=== PATIENT | female | born 1995 | race African-American/Black ===

== ENCOUNTER 2017-08-14 18:40 | Emergency (ER) | payer OTHER ==
[~2017-08-14] VITALS: Ht 165.1 cm; Wt 122.7 kg
[~2017-08-14 18:40] MED LIST: BACTRIM DS 8001 TAB PO; BIRTH CONTROL PILLS; GLUCOPHAGE500 MG/TAB PO; NAPROSYN500 MG PO; NORCO 325 MG-51 TAB PO; PYRIDIUM 100MG100 MG PO; ULTRAM 50MG TAB50 MG PO; ZESTRIL 10MG10 MG PO
[2017-08-14 18:46] VITALS: BP 136/89; TEMP 97.7
[2017-08-14 20:42] VITALS: PULSE 79
== END 2017-08-14 20:42 | disposition home or self-care (01) ==
LOC: COL.ER 18:40
DX: S93.401A Sprain of unspecified ligament of right ankle, initial encounter (principal); I10 Essential (primary) hypertension; X50.0XXA Overexertion from strenuous movement or load, initial encounter

== ENCOUNTER 2018-11-10 02:48 | Emergency (ER) | payer OTHER ==
[~2018-11-10] VITALS: Ht 165.1 cm; Wt 127.3 kg
[2018-11-10 03:00] VITALS: TEMP 96.6
[2018-11-10 03:17] LABS: COLLECTION METHOD CLEAN CATCH
[2018-11-10 03:26] LABS: MUCOUS Present /lpf; PH 6 (5-8); URINE APPEARANCE Cloudy; URINE BACTERIA Rare /hpf; URINE BILIRUBIN Negative (NEGATIVE); URINE BLOOD 2+ (NEGATIVE); URINE COLOR Yellow; URINE GLUCOSE Negative (NEGATIVE); URINE KETONE Negative (NEGATIVE); URINE LEUKOCYTE ESTERASE Negative (NEGATIVE); URINE NITRATE Negative (NEGATIVE); URINE PROTEIN(semi-quant) Negative (NEGATIVE); URINE RBC >50 /hpf; URINE UROBILINOGEN Negative (NEGATIVE)
[2018-11-10 04:38] LABS: BASO % 0.3 % (0.0-2.0); EOS # 0.2 (0.0-0.7); EOS % 2.3 % (0-4.0); GRAN # 6.6 (1.4-6.5); GRAN % 67.7 % (42.2-75.2); HEMATOCRIT 40.9 % (37.0-47.0); HEMOGLOBIN 13.3 g/dl (12.5-16.0); LYMPH # 2.1 (1.2-3.4); LYMPH % 21.3 % (20.0-51.0); MEAN CELL VOLUME 90 fl (80.0-100.0); MEAN CORPUSCULAR HEMOGLOBIN 29 pg (27.0-31.0); MEAN CORPUSCULAR HGB CONC 33 g/dl (33.0-37.0); MEAN PLATELET VOLUME 10.1 fl (7.4-10.4); MONO # 0.8 (0.1-0.6); MONO % 8.1 % (1.7-9.3); PLATELET COUNT 319 K/mm3 (130-400); RED BLOOD COUNT 4.57 M/mm3 (4.10-5.30); REDCELL DISTRIBUTION WIDTH-CV 12.4 % (11.5-14.5)
[2018-11-10 04:48] LABS: ALBUMIN 3.9 gm/dL (3.5-5.0); BILIRUBIN,TOTAL 0.2 mg/dL (0.0-1.0); CALCIUM 9.5 mg/dL (8.4-10.2); CREATININE, serum 0.9 (0.52-1.25); POTASSIUM 4.4 mmol/L (3.4-5.0); TOTAL PROTEIN 7.4 gm/dL (6.4-8.2)
[2018-11-10] MEDS ORDERED: ZOFRAN 4MG T4 MG/TAB PO (07:04)
[2018-11-10] MEDS ORDERED: NORCO 325 MG-51 TAB PO (07:04)
[2018-11-10] MEDS ORDERED: FLOMAX 0.40.4 MG/CAP PO (07:04)
[2018-11-10 07:23] VITALS: BP 136/70; PULSE 68
== END 2018-11-10 07:24 | disposition home or self-care (01) ==
LOC: COL.ER 02:48
PROVIDERS: Emergency Medicine
DX: N20.2 Calculus of kidney with calculus of ureter (principal); E66.9 Obesity, unspecified; F17.210 Nicotine dependence, cigarettes, uncomplicated
CPT/HCPCS: J0780; J1885; J2270; J2405; J7030; Q9967